=== PATIENT | male | born 1950 | race Caucasian/White ===

== ENCOUNTER 2016-07-25 14:49 | Emergency (ER) | payer BC ==
[2016-07-25 17:22] LABS: Hematocrit 40 % (42-52); Hemoglobin 13.4 g/dl (14.0-18.0); Mean Corpuscular HGB Conc 34 g/dl (31-36); Mean Corpuscular Hemoglobin 32 pg (27-31); Mean Corpuscular Volume 93 fL (80-94); Mean Platelet Volume 8 um3 (7.4-10.4); Red Blood Count 4.26 10^6/ul (4.0-5.4); Red Cell Distribution Width 13 % (10.5-15); White Blood Count 5.9 10^3/ul (3.5-10.8)
[2016-07-25 17:35] LABS: Albumin 4.2 g/dL (3.2-5.2); BUN/Creatinine Ratio 22.8 (8-20); Calcium 9.4 mg/dL (8.6-10.3); EGFR African American 106.9 (>60); EGFR Non-African American 83.1 (>60); Globulin 2.6 g/dL (2-4); Potassium 4.1 mmol/L (3.5-5.0); Total Bilirubin 0.5 mg/dL (0.2-1.0); Total Protein 6.8 g/dL (6.4-8.9)
[2016-07-25 17:36] LABS: Troponin I 0.01 ng/mL (<0.04)
[2016-07-25 18:43] VITALS: BP 113/76
--- NOTE | 2016-07-28 09:33 | ED ---
Billie Winston Matthew, scribed for Daniel Quan MD on 07/25/16 at 1719 . Back Pain - HPI Summary HPI Summary: A 65 y/o male presents to the ED with upper back pain since two weeks ago. The pain is rated 7/10 in severity. Associated symptoms include left shoulder and arm aches. The patient denies trauma weakness, numbness, tingling, abdominal pain and current chest pain. However, he states that he had mild chest pressure last night, which alleviated by morning. The patient has been stretching and received a massage without much relieve. He has also been taking ibuprofen, muscle spam medication, and injections without relief either. He states that his symptoms mild improved yesterday, but worsened today. 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 His symptoms are unaffected by PO intake. The pain worsens with flexion of the neck and coughing. He was seen at [facility] today, and they recommended he presents to the ED for blood work. At [facility], he received an EKG and XRAYs, which he states all returned normal. - History of Current Complaint Chief Complaint: EDGeneral Stated Complaint: UPPER LT BACK PAIN Time Seen by Provider: 07/25/16 15:57 Hx Obtained From: Patient Onset/Duration: Gradual Onset, Lasting Weeks, Still Present Onset/Duration: Started Weeks Ago, Atraumatic, Still Present Timing: Constant Back Pain Location: Is Discrete @ - upper back Severity Initially: Moderate Severity Currently: Moderate Pain Intensity: 7 Pain Scale Used: 0-10 Numeric Aggravating Symptom(s): Movement - flexion of the neck, Cough Alleviating Symptom(s): Nothing Associated Signs And Symptoms: Positive: Other - left shoulder and arm aches. Negative: Weakness, Numbness, Tingling, Abdominal Pain - Allergies/Home Medications Allergies/Adverse Reactions: Allergies Allergy/AdvReac Type Severity Reaction Status Date / Time Pollens, Dust, Mold AdvReac Intermediate Nasal Uncoded 04/01/16 14:09 Congestion PMH/Surg Hx/FS Hx/Imm Hx Endocrine/Hematology History: Denies: Hx Diabetes Cardiovascular History: Denies: Hx Congestive Heart Failure, Hx Hypertension Respiratory History: Reports: Hx Asthma, Hx Seasonal Allergies, Hx Sleep Apnea, Other Respiratory Problems/Disorders - PRIOR INFILTRATES History: Denies: Hx Renal Disease Musculoskeletal History: Reports: Hx Arthritis - 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 Sensory History: Reports: Hx Contacts or Glasses Opthamlomology History: Reports: Hx Contacts or Glasses - Surgical History Surgery Procedure, Year, and Place: Arthroscopic left knee; Fractured right arm repaired; Nasal Polyps removed - Immunization History Date of Tetanus Vaccine: today in ED Infectious Disease History: No Infectious Disease History: Denies: Traveled Outside the [place] in Last 30 Days - Family History Family History: FHx of pacemaker - Social History Alcohol Use: None Substance Use Type: Reports: None Smoking Status (MU): Never Smoked Tobacco Review of Systems Constitutional: Negative Eyes: Negative ENT: Negative Cardiovascular: Negative Negative: Chest Pain Respiratory: Negative Negative: Shortness Of Breath Gastrointestinal: Negative Negative: Abdominal Pain Genitourinary: Negative Positive: Myalgia - back pain; left shoulder achiness, left arm achiness Skin: Negative Neurological: Negative Negative: Weakness, Numbness Psychological: Normal All Other Systems Reviewed And Are Negative: Yes Physical Exam - Summary Physical Exam Summary: GENERAL: Awake, alert, oriented, no acute distress, very pleasant, normal phonation HEENT: Head is normocephalic, atraumatic, pupils equal round reactive to light, no photophobia, extraocular muscles intact, no facial droop, anicteric sclera, pink conjunctiva, mucous membranes moist, no erythema, no discharge, no lesions , neck is soft, neck is supple, no carotid bruit , trachea is midline, no JVD CARDIAC: Regular rate and rhythm, S1, S2, no rub, no murmur, no gallop, 2+ radial and pedal pulses bilaterally RESPIRATORY: Clear to auscultation bilaterally with no rales, rhonchi, or wheezes, non-tender ABDOMEN: Bowel sounds positive, no bruit, soft non-tender, no CVA tenderness, Negative Catrwright's Sign EXTREMITIES: No edema, warm, dry, moving all extremities in a grossly normal manner NEUROLOGICAL: Cranial nerves II through XII intact, five out of five flexor and extensor strength in upper and lower extremities symmetrically, 2+ DTRs in upper and lower extremities symmetrically, no pronator drift, normal finger nose finger, normal rapid alternating movements, negative Babinski, normal sensation in all extremities Triage Information Reviewed: Yes Vital Signs On Initial Exam: Initial Vitals Temp Pulse Resp BP Pulse Ox 98.1 F 72 16 133/86 100 07/25/16 15:07 07/25/16 15:07 07/25/16 15:07 07/25/16 15:07 07/25/16 15:07 Vital Signs Reviewed: Yes Diagnostics - Vital Signs Vital Signs Temp Pulse Resp BP Pulse Ox 07/25/16 15:07 98.1 F 72 16 133/86 100 - Laboratory Lab Results: Lab Results 07/25/16 07/25/16 07/25/16 Range/Units 16:11 16:11 16:11 WBC 5.9 (3.5-10.8) 10^3/ul RBC 4.26 (4.0-5.4) 10^6/ul Hgb 13.4 L (14.0-18.0) g/dl Hct 40 L (42-52) % MCV 93 (80-94) fL MCH 32 H (27-31) pg MCHC 34 (31-36) g/dl RDW 13 (10.5-15) % Plt Count 254 (150-450) 10^3/ul MPV 8 (7.4-10.4) um3 Neut % (Auto) 60.8 (38-83) % Lymph % (Auto) 26.8 (25-47) % [place] % (Auto) 8.5 (1-9) % Eos % (Auto) 3.3 (0-6) % Baso % (Auto) 0.6 (0-2) % Absolute Neuts (auto) 3.6 (1.5-7.7) 10^3/ul Absolute Lymphs (auto) 1.6 (1.0-4.8) 10^3/ul Absolute Monos (auto) 0.5 (0-0.8) 10^3/ul Absolute Eos (auto) 0.2 (0-0.6) 10^3/ul Absolute Basos (auto) 0 (0-0.2) 10^3/ul Absolute Nucleated RBC 0 10^3/ul Nucleated RBC % 0 INR (Anticoag Therapy) 0.96 (0.89-1.11) APTT 33.0 (26.0-36.3) seconds Sodium 136 (133-145) mmol/L Potassium 4.1 (3.5-5.0) mmol/L Chloride 103 (101-111) mmol/L Carbon Dioxide 28 (22-32) mmol/L Anion Gap 5 (2-11) mmol/L BUN 21 (6-24) mg/dL Creatinine 0.92 (0.67-1.17) mg/dL Est GFR ( Amer) 106.9 (>60) Est GFR (Non-Af Amer) 83.1 (>60) BUN/Creatinine Ratio 22.8 H (8-20) Glucose 89 (70-100) mg/dL Lactic Acid (0.5-2.0) mmol/L Calcium 9.4 (8.6-10.3) mg/dL Total Bilirubin 0.50 (0.2-1.0) mg/dL AST 17 (13-39) U/L ALT 13 (7-52) U/L Alkaline Phosphatase 38 (34-104) U/L Total Creatine Kinase 113 (10-223) U/L CK-MB (CK-2) 3.0 (0.6-6.3) ng/mL Myoglobin 27.5 (17.4-105.7) ng/mL Troponin I 0.01 (<0.04) ng/mL B-Natriuretic Peptide ( - 100) pg/mL Total Protein 6.8 (6.4-8.9) g/dL Albumin 4.2 (3.2-5.2) g/dL Globulin 2.6 (2-4) g/dL Albumin/Globulin Ratio 1.6 (1-3) 07/25/16 07/25/16 Range/Units 16:11 16:11 WBC (3.5-10.8) 10^3/ul RBC (4.0-5.4) 10^6/ul Hgb (14.0-18.0) g/dl Hct (42-52) % MCV (80-94) fL MCH (27-31) pg MCHC (31-36) g/dl RDW (10.5-15) % Plt Count (150-450) 10^3/ul MPV (7.4-10.4) um3 Neut % (Auto) (38-83) % Lymph % (Auto) (25-47) % [place] % (Auto) (1-9) % Eos % (Auto) (0-6) % Baso % (Auto) (0-2) % Absolute Neuts (auto) (1.5-7.7) 10^3/ul Absolute Lymphs (auto) (1.0-4.8) 10^3/ul Absolute Monos (auto) (0-0.8) 10^3/ul Absolute Eos (auto) (0-0.6) 10^3/ul Absolute Basos (auto) (0-0.2) 10^3/ul Absolute Nucleated RBC 10^3/ul Nucleated RBC % INR (Anticoag Therapy) (0.89-1.11) APTT (26.0-36.3) seconds Sodium (133-145) mmol/L Potassium (3.5-5.0) mmol/L Chloride (101-111) mmol/L Carbon Dioxide (22-32) mmol/L Anion Gap (2-11) mmol/L BUN (6-24) mg/dL Creatinine (0.67-1.17) mg/dL Est GFR ( Amer) (>60) Est GFR (Non-Af Amer) (>60) BUN/Creatinine Ratio (8-20) Glucose (70-100) mg/dL Lactic Acid 0.7 (0.5-2.0) mmol/L Calcium (8.6-10.3) mg/dL Total Bilirubin (0.2-1.0) mg/dL AST (13-39) U/L ALT (7-52) U/L Alkaline Phosphatase (34-104) U/L Total Creatine Kinase (10-223) U/L CK-MB (CK-2) (0.6-6.3) ng/mL Myoglobin (17.4-105.7) ng/mL Troponin I (<0.04) ng/mL B-Natriuretic Peptide 84 ( - 100) pg/mL Total Protein (6.4-8.9) g/dL Albumin (3.2-5.2) g/dL Globulin (2-4) g/dL Albumin/Globulin Ratio (1-3) Result Diagrams: 07/25/16 16:11 07/25/16 16:11 Lab Statement: Any lab studies that have been ordered have been reviewed, and results considered in the medical decision making process. - EKG 15:17 Cardiac Rate: NL - 69 bpm EKG Rhythm: Sinus Rhythm EKG Interpretation: No Acute Ischemia Back Pain Course/Dx - Diagnoses Provider Diagnoses: back pain Discharge - Discharge Plan Condition: Stable Disposition: HOME Patient Education Materials: Back Pain (ED) Referrals: Kiara Yee MD [Primary Care Provider] - 2 Days Additional Instructions: Please follow-up with your primary care physician in two days. PLEASE RETURN TO THE EMERGENCY DEPARTMENT FOR NAUSEA, VOMITING, FEVER, PHOTOPHOBIA, CHEST PAIN, OR IF SYMPTOMS WORSEN. The documentation as recorded by the Billie dowling Matthew accurately reflects the service I personally performed and the decisions made by Kadeem martell Steven, MD.
== END 2016-07-25 18:41 | disposition home or self-care (01) ==
LOC: ED 14:49
DX: M54.9 Dorsalgia, unspecified (principal)
CPT/HCPCS: 36415; 80053; 82550; 82553; 83605; 83874; 83880; 84484; 85025; 85610; 85730; 93005; 99282

== ENCOUNTER 2017-07-11 10:26 | Emergency (ER) | payer BC ==
--- OUTSIDE RECORDS SUMMARY | 2017-07-11 10:30 | XMS REPORT ---
:1950 External Reference #:[id number] Author Organization [facility] Address [address] [place] [address] Phone [phone] Care Team Providers Name Role Phone O Anjana Krystleyane Primary Care Physician Unavailable Payers Type Date Identification Numbers Payment Provider Subscriber Commercial Effective: Policy Number: [id number] BS [place] Jeryr Aj 2011 Group Name: Chanel Bernal [id number] PayID: [id number] [place] [address] Problems Date Description Provider Status Onset: Kidney stone Active Onset: 07/04/2017 Age related macular degeneration Tiarra Linton O.D. Active Onset: 07/01/2016 Open-angle glaucoma - borderline Tiarra Linton O.D. Active Onset: 04/06/2015 Open angle with borderline findings Tiarra Linton O.D. Active Onset: 04/06/2015 Presbyopia Tiarra Linton O.D. Active Onset: 04/06/2015 Hypermetropia Tiarra Linton O.D. Active Onset: 04/06/2015 Scarred macula Tiarra Linton O.D. Active Family History Date Family Member(s) Problem(s) Comments General No Current Problems Father Cataract Mother No Current Problems Social History Type Date Description Comments Marital Status Legal Status: Occupation [employer] Work Status Part-Time Employment ETOH Use Occasionally consumes alcohol Smoking Patient has never smoked Recreational Drug Use Denies Drug Use Daily Caffeine Consumes on average 2 cups of regular coffee per day Allergies, Adverse Reactions, Alerts Date Description Reaction Status Severity Comments 04/05/2015 NKDA active Medications Medication Date Status Form Strength Qnty SIG Indications Ordering Provider Vitamin C Active Capsules 500mg 2 tab by Unknown 00 mouth every day Vitamin D3 Active Capsules 2000Unit Unknown 00 No Active 07/01/20 Hx Unknown Medications 16 - 07/01/20 16 Vitamin B6 Hx Tablets 200mg Unknown - 07/03/20 17 Zinc Hx Capsules 30mg Unknown - 07/03/20 17 Medications Administered in Office Medication Date Status Form Strength Qnty SIG Indications Ordering Provider Crizal Administered Injection Karen 3 Brown,Abo Results Description No Information Procedures Date CPT Code Description Status 07/01/2016 32606 Scanning Computerized Ophthalmic Diagnostic Imag Completed Posterior Seg On 07/01/2016 31295 Visual Field Exam Extended Completed 07/01/2016 37872 Est Patient Intermediate Exam Completed 01/03/2016 15858 Pachymetry Completed 07/05/2015 70792 Visual Field Exam Extended Completed 07/05/2015 57622 Est Patient Intermediate Exam Completed 04/06/2015 62001 Scanning Computerized Opthalmic Diagnostic Posterior Completed Seg Retina 04/06/2015 98517 Est Patient Comprehensive Exam Completed 04/05/2014 77805 Scanning Computerized Opthalmic Diagnostic Posterior Completed Seg Retina 04/05/2014 18010 Determination Of Refractive State Completed 04/05/2014 47502 Est Patient Comprehensive Exam Completed 03/25/2012 602 Nose Pads Completed 03/25/2012 609 Eyewear Repair Completed 03/24/2012 00373 Determination Of Refractive State Completed 03/24/2012 11643 Est Patient Comprehensive Exam Completed 02/06/2010 44064 Determination Of Refractive State Completed 02/06/2010 32874 Est Patient Comprehensive Exam Completed 02/04/2008 76281 Determination Of Refractive State Completed 02/04/2008 86208 Est Patient Comprehensive Exam Completed 11/27/2005 21434 Determination Of Refractive State Completed 11/27/2005 39886 Est Patient Comprehensive Exam Completed 04/18/2004 39978 Determination Of Refractive State Completed 04/18/2004 75038 Est Patient Comprehensive Exam Completed 02/23/2003 113 Crizal Completed Encounters Type Date Location Provider CPT E/M Dx Office Visit 01/03/2016 Brandin Stokes MD, Tiarra Linton O.D. 92104 H40.013 8:30a Plan of Care 07/04/2017 - Tiarra Linton O.D.H40.013 Open angle with borderline findings, low risk, bilateralComments:Dr. Linton is considering you a Glaucoma suspect. This means the eye pressure in your eyes are higher than average, your optic nerve appearance is suspicious, or you have strong risk factors; but you have not been diagnosed with Glaucoma. Follow up appointments are very important to keep.Follow up:1 year OCT nerve/VF 24-2H35.30 Unspecified macular degenerationComments:Smoking can increase the risk of developing or worsening any eye related disease, as well as affect your overall health. If you are a smoker, we strongly recommend that you quit.If you are not a smoker, we strongly recommend that you do not start.
[2017-07-11 10:42] VITALS: BP 127/77
--- NOTE | 2017-07-11 12:04 | UC ---
Respiratory Complaint HPI - HPI Summary HPI Summary: Pt presents with ST, earache, and sinus congestion for 2 days. He tells me that he was walking [place] dog along the [place] few days ago and woke up with a ST and sinus congestion 2 days ago. He took vitamin C and drank tea. Denies fever, chills, SOB, chest pain, abdominal pain, N/v/D/C - History of Current Complaint Chief Complaint: UCRespiratory Stated Complaint: SORE THROAT Time Seen by Provider: 07/11/17 11:47 Hx Obtained From: Patient Onset/Duration: Gradual Onset Severity Initially: Mild Severity Currently: Mild Pain Intensity: 3 Pain Scale Used: 0-10 Numeric Character: Cough: Nonproductive - Allergies/Home Medications Allergies/Adverse Reactions: Allergies Allergy/AdvReac Type Severity Reaction Status Date / Time Pollens, Dust, Mold AdvReac Intermediate Nasal Uncoded 04/01/16 14:09 Congestion Home Medications: Home Medications Ascorbic Acid TAB* [Vitamin C TAB*] 2,000 mg PO DAILY 07/11/17 [History Confirmed 07/11/17] PMH/Surg Hx/FS Hx/Imm Hx Previously Healthy: Yes - Surgical History Surgical History: Yes Surgery Procedure, Year, and Place: Arthroscopic left knee; Fractured right arm repaired; Nasal Polyps removed 90's - Family History Family History: FHx of pacemaker - Social History Occupation: Employed Part-time Lives: With Family Alcohol Use: Weekly Substance Use Type: Marijuana Substance Use Comment - Amount & Last Used: several times each week Smoking Status (MU): Never Smoked Tobacco Review of Systems Constitutional: Negative Skin: Negative Eyes: Negative ENT: Sore Throat, Ear Ache, Nasal Discharge, Sinus Congestion Respiratory: Cough Cardiovascular: Negative Gastrointestinal: Negative All Other Systems Reviewed And Are Negative: Yes Physical Exam Triage Information Reviewed: Yes Appearance: Well-Appearing, Well-Nourished Vital Signs: Initial Vital Signs Temp 98.3 F 07/11/17 10:36 Pulse 67 07/11/17 10:36 Resp 16 07/11/17 10:36 BP 127/77 07/11/17 10:36 Pulse Ox 100 07/11/17 10:36 Vital Signs Reviewed: Yes Eyes: Positive: Conjunctiva Clear. Negative: Conjunctiva Inflamed, Discharge ENT: Positive: Hearing grossly normal, Pharynx normal, Nasal congestion, TMs normal, Uvula midline. Negative: Pharyngeal erythema, Nasal drainage, TM bulging, TM dull, TM red, Tonsillar swelling, Tonsillar exudate, Hoarse voice, Sinus tenderness Neck: Positive: Supple, Nontender, No Lymphadenopathy Respiratory: Positive: Chest non-tender, Lungs clear, Normal breath sounds, No respiratory distress, No accessory muscle use Cardiovascular: Positive: RRR, No Murmur, Pulses Normal Neurological: Positive: Alert Psychological: Positive: Age Appropriate Behavior Skin: Negative: rashes UC Diagnostic Evaluation - Laboratory O2 Sat by Pulse Oximetry: 100 Respiratory Course/Dx - Course Course Of Treatment: POC strep neg. Suspect viral illness. Advised patient to try conservative measures such as tylenol and mucinex OTC. Netti pot and rest. If symptoms worsen or persist to f/u with his PCP or return to clinic. - Differential Dx/Diagnosis Differential Diagnosis/HQI/PQRI: Bronchitis, Influenza, Laryngitis, Sinusitis Provider Diagnoses: Viral pharyngitis. Viral sinusitis Discharge - Discharge Plan Condition: Stable Disposition: HOME Patient Education Materials: Pharyngitis (ED) Referrals: Kiara Yee MD [Primary Care Provider] - Additional Instructions: If you develop a fever, SOB, chest pain, new or worsening symptoms - please call your PCP or go to the ED. 1) May take plain Mucinex OTC twice a day for the sinus congestion. Tylenol OTC for any fevers or discomfort.
== END 2017-07-11 12:16 | disposition home or self-care (01) ==
LOC: UCEAST 10:26
DX: J02.8 Acute pharyngitis due to other specified organisms (principal); J32.9 Chronic sinusitis, unspecified; B97.89 Other viral agents as the cause of diseases classified elsewhere; Z91.048 Other nonmedicinal substance allergy status
CPT/HCPCS: 87651; 99211; G0463

== ENCOUNTER 2017-10-27 15:49 | Emergency (ER) | payer BC ==
[2017-10-27 16:03] VITALS: BP 124/76
[2017-10-27] MEDS ORDERED: HYDROcodone/ACETAMIN 5-325 MG* 1 TAB PO ONE (16:15)
[2017-10-27] MEDS ORDERED: Tetan/Diph/Pertus SYR(Tdap)* 0.5 ML SYR(BOOSTRIX) use SYR IM ONE (16:18)
--- NOTE | 2017-10-27 16:20 | UC ---
Laceration HPI - HPI Summary HPI Summary: This is an otherwise healthy 67 yo male who presents with c/o laceration of his L thumb due to a table saw. Injury occurred earlier today. He is unsure of his last tetanus. No other injuries sustained. - History Of Current Complaint Chief Complaint: UCLaceration Stated Complaint: thumb laceration Pain Intensity: 5 - Allergies/Home Medications Allergies/Adverse Reactions: Allergies Allergy/AdvReac Type Severity Reaction Status Date / Time Pollens, Dust, Mold AdvReac Intermediate Nasal Uncoded 04/01/16 14:09 Congestion PMH/Surg Hx/FS Hx/Imm Hx Previously Healthy: Yes - Surgical History Surgical History: Yes Surgery Procedure, Year, and Place: Arthroscopic left knee; Fractured right arm repaired; Nasal Polyps removed 's - Family History Family History: FHx of pacemaker - Social History Alcohol Use: Weekly Substance Use Type: Marijuana Substance Use Comment - Amount & Last Used: several times each week Smoking Status (MU): Never Smoked Tobacco Review of Systems Constitutional: Negative Skin: Other - laceration Eyes: Negative ENT: Negative Respiratory: Negative Cardiovascular: Negative Gastrointestinal: Negative Genitourinary: Negative Motor: Negative Neurovascular: Negative Musculoskeletal: Negative Neurological: Negative Psychological: Negative Is Patient Immunocompromised?: No All Other Systems Reviewed And Are Negative: Yes Physical Exam Triage Information Reviewed: Yes Appearance: Well-Appearing Vital Signs: Initial Vital Signs Temp 97.9 F 10/27/17 15:57 Pulse 72 10/27/17 15:57 Resp 18 10/27/17 15:57 BP 124/76 10/27/17 15:57 Pulse Ox 96 10/27/17 15:57 ENT Exam: Normal Neck exam: Normal Respiratory Exam: Normal Cardiovascular Exam: Normal Cardiovascular: Positive: RRR Abdominal Exam: Normal Musculoskeletal Exam: Normal Musculoskeletal: Positive: Other: - ROM and strength intact Neurological Exam: Normal Neurological: Positive: Other: - sensation intact Psychological Exam: Normal Skin: Positive: Other - laceration of the distal pad of the L thumb, irregular laceration ~3cm in length Laceration Repair - Laceration Repair 1 Description: Irregular Laceration Size After Repair: Length (cm) - 3 Modified For Repair: No Anesthesia Used: 2.0% Lido Cleansing Completed Via Routine Prep: Yes Irrigation With Pressure Irrigation Device: No Closure Material: Sutures Closure Method: Single Layer - 2 simple sutures on either end, and 2 horizontal mattress sutures in the middle Suture Of: Skin Suture Type: Nylon Diagnostics - Laboratory Diagnostic Studies Completed/Ordered: XR L thumb - no associated fx Laceration Course/Dx - Course/Dx Course Of Treatment: Otherwise healthy 67 yo male with laceration of L thumb from a table saw. No associated fracture. Simple closure. Tetanus updated - Differential Dx - Laceration/Wound Differental Diagnoses: Laceration, Tendon Laceration Provider Diagnoses: 1. Laceration L 1st finger Discharge - Sign-Out/Discharge Documenting (check all that apply): Discharge - Discharge Plan Condition: Stable Disposition: HOME Prescriptions: Hydrocodone/Acetaminophen [Hydrocodone-Acetamin 5-325 mg] 1 each PO Q6H PRN #5 tablet MDD 4 tabs PRN Reason: Pain Patient Education Materials: Care For Your Stitches (DC), Laceration (DC) Referrals: Kiara Yee MD [Primary Care Provider] - 7 Days Additional Instructions: Instructions: 1. Keep laceration clean and dry 2. Replace bandage daily - apply antibiotic ointment and clean gauze 3. Monitor for signs of infection 4. Return here or your primary care provider's office in 7-10days for suture removal - Billing Disposition and Condition Condition: STABLE Disposition: HOME
[2017-10-27] MEDS ORDERED: Lidocaine 2% PF * 5 ML VIAL INJ ONE (16:35)
--- NOTE | 2017-10-27 16:35 | RAD ---
INDICATION: Left distal thumb saw injury. TECHNIQUE: 3 views of the left thumb were obtained. FINDINGS: There is soft tissue swelling and a soft tissue defect adjacent to the distal phalanx. The bones are in normal alignment. No fracture is seen. There is mild to moderate osteoarthritic change in the metacarpal phalangeal and interphalangeal joints. IMPRESSION: SOFT TISSUE DEFECT, NO FRACTURE IS SEEN.
== END 2017-10-27 17:46 | disposition home or self-care (01) ==
LOC: UCEAST 15:49
DX: S61.012A Laceration without foreign body of left thumb without damage to nail, initial encounter (principal); W29.8XXA Contact with other powered hand tools and household machinery, initial encounter; Y92.9 Unspecified place or not applicable
CPT/HCPCS: 12002; 90715; 99212; G0463

== ENCOUNTER 2017-11-04 10:23 | Emergency (ER) | payer BC ==
[2017-11-04 11:08] VITALS: BP 128/83
--- NOTE | 2017-11-04 11:42 | UC ---
Laceration HPI - HPI Summary HPI Summary: Pt presents for removal of sutures to left thumb. He had them placed on 10/27. Due to the location and type of laceration, the wound was unable to be fully approximated and left open with a width of about 5mm. He has had no issues since suture placement. - History Of Current Complaint Chief Complaint: UCLaceration Stated Complaint: STITCH REMOVAL Time Seen by Provider: 11/04/17 11:10 Hx Obtained From: Patient Laceration Location: Finger Mechanism Of Injury: Sharp Trauma Severity: Mild Pain Intensity: 1 Pain Scale Used: 0-10 Numeric - Allergies/Home Medications Allergies/Adverse Reactions: Allergies Allergy/AdvReac Type Severity Reaction Status Date / Time cat dander Allergy Congestion Verified 11/04/17 11:04 Pollens, Dust, Mold AdvReac Intermediate Nasal Uncoded 11/04/17 11:03 Congestion Home Medications: Home Medications NK [No Home Medications Reported] 11/04/17 [History Confirmed 11/04/17] PMH/Surg Hx/FS Hx/Imm Hx - Additional Past Medical History Additional PMH: None - Surgical History Surgical History: Yes Surgery Procedure, Year, and Place: Arthroscopic left knee; Fractured right arm repaired; Nasal Polyps removed 's - Family History Family History: FHx of pacemaker - Social History Occupation: Employed Full-time Lives: With Family Alcohol Use: Weekly Substance Use Type: Marijuana Substance Use Comment - Amount & Last Used: several times each week Smoking Status (MU): Never Smoked Tobacco Review of Systems Constitutional: Negative Skin: Other - [address] left thumb Respiratory: Negative Cardiovascular: Negative Neurovascular: Negative Musculoskeletal: Negative Neurological: Negative Psychological: Negative All Other Systems Reviewed And Are Negative: Yes Physical Exam - Summary Physical Exam Summary: GENERAL: NAD. WDWN. No pain distress. SKIN: Laceration to left thumb with 5mm width of new granulation tissue due to secondary wound healing. [address] in place and [address] No erythema, drainage, warmth, edema, or streaking. NECK: Supple. Nontender. No lymphadenopathy. CHEST: No accessory muscle use. Breathing comfortably and in no distress. CV: Pulses intact. Brisk cap refill. MSK: FROM left thumb NEURO: Alert. Sensations intact left thumb PSYCH: Age appropriate behavior. Triage Information Reviewed: Yes Vital Signs: Initial Vital Signs Temp 98.1 F 11/04/17 11:04 Pulse 60 11/04/17 11:04 Resp 18 11/04/17 11:04 BP 128/83 11/04/17 11:04 Pulse Ox 99 11/04/17 11:04 Laceration Course/Dx - Course/Dx Course Of Treatment: Sutures removed without issue. Advised to keep area covered with band-aid or nonstick dressing until wound scabs or heals. - Differential Dx - Laceration/Wound Provider Diagnoses: Suture removal left thumb Discharge - Sign-Out/Discharge Documenting (check all that apply): Discharge/Admit/Transfer - Discharge Plan Condition: Stable Disposition: HOME Referrals: Kiara Yee MD [Primary Care Provider] - Additional Instructions: If you develop a fever, shortness of breath, chest pain, new or worsening symptoms - please call your PCP or go to the ED. - Billing Disposition and Condition Condition: STABLE Disposition: HOME
== END 2017-11-04 11:45 | disposition home or self-care (01) ==
LOC: UCEAST 10:23
DX: S61.012D Laceration without foreign body of left thumb without damage to nail, subsequent encounter (principal); X58.XXXD Exposure to other specified factors, subsequent encounter

== ENCOUNTER 2019-04-30 09:06 | Observation (INO) | payer MEDICARE ==
--- NOTE | 2019-04-30 09:24 | ED ---
HPI Cardiac - HPI Summary HPI Summary: 68 year old male reports to [facility] with irregular heart rhythm, starting months ago but worsening 4-5 days ago. He was at an annual sleep lab this morning when atrial flutter was detected. He notes no discomfort. His heart rhythm is more noticeable after lying down in bed. Patient reports no palpitations or shortness of breath. He has no history of irregular heart rhythm. PMHx of asthma many years ago, exercise induced. He has had recent biopsies on his prostate. He does not take any chronic medications. PSHx include surgeries for lacerations on his fingers and arthroscopic surgery on his left knee. No history of smoking tobacco. Drinks alcohol daily. FHx of diabetes. - History of Current Complaint Chief Complaint: EDDysrhythmPalp Stated Complaint: RAPID AFIB PER DR Colmenares Obtained From: Patient Onset/Duration: Started Weeks Ago, Still Present Initial Severity: Mild Current Severity: Mild Pain Intensity: 0 Pain Scale Used: 0-10 Numeric Character: Irregular Associated Signs and Symptoms: Negative: Shortness of Breath - Allergy/Home Medications Allergies/Adverse Reactions: Allergies Allergy/AdvReac Type Severity Reaction Status Date / Time cat dander Allergy Congestion Verified 04/30/19 09:42 Pollens, Dust, Mold AdvReac Intermediate Nasal Uncoded 11/04/17 11:03 Congestion Home Medications: Home Medications Ascorbic Acid TAB* [Vitamin C TAB*] 1,000 mg PO DAILY 04/30/19 [History Confirmed 04/30/19] Cyanocobalamin TAB* [Vitamin B12 TAB*] 500 mcg PO DAILY 04/30/19 [History Confirmed 04/30/19] PMH/Surg Hx/FS Hx/Imm Hx Endocrine/Hematology History: Denies: Hx Diabetes Cardiovascular History: Denies: Hx Congestive Heart Failure, Hx Hypertension Respiratory History: Reports: Hx Asthma, Hx Seasonal Allergies, Hx Sleep Apnea, Other Respiratory Problems/Disorders - PRIOR INFILTRATES History: Denies: Hx Renal Disease Musculoskeletal History: Reports: Hx Arthritis - 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 Sensory History: Reports: Hx Contacts or Glasses Opthamlomology History: Reports: Hx Contacts or Glasses - Surgical History Surgery Procedure, Year, and Place: Arthroscopic left knee; Fractured right arm repaired; Nasal Polyps removed s - Immunization History Date of Tetanus Vaccine: today in ED Infectious Disease History: No Infectious Disease History: Denies: Traveled Outside the [place] in Last 30 Days - Family History Known Family History: Positive: Diabetes Family History: FHx of pacemaker - Social History Alcohol Use: Daily Hx Substance Use: Yes Substance Use Type: Reports: Marijuana Substance Use Comment - Amount & Last Used: several times each week Smoking Status (MU): Never Smoked Tobacco Review of Systems Positive: Other - irregular rate and rhythm. Negative: Palpitations Negative: Shortness Of Breath All Other Systems Reviewed And Are Negative: Yes Physical Exam - Summary Physical Exam Summary: VITAL SIGNS: Reviewed. GENERAL: Patient is a well-developed and nourished male who is lying comfortable in the stretcher. Patient is not in any acute respiratory distress. HEAD AND FACE: No signs of trauma. No ecchymosis, hematomas or skull depressions. No sinus tenderness. EYES: PERRLA, EOMI x 2, No injected conjunctiva, no nystagmus. EARS: Hearing grossly intact. Ear canals and tympanic membranes are within normal limits. MOUTH: Oropharynx within normal limits. NECK: Supple, trachea is midline, no adenopathy, no JVD, no carotid bruit, no c- spine tenderness, neck with full ROM. CHEST: Symmetric, no tenderness at palpation. LUNGS: Clear to auscultation bilaterally. No wheezing or crackles. CVS: Irregular rate and rhythm, S1 and S2 present, no murmurs or gallops appreciated. ABDOMEN: Soft, non-tender. No signs of distention. No rebound, no guarding, and no masses palpated. Bowel sounds are normal. EXTREMITIES: FROM in all major joints, no edema, no cyanosis or clubbing. NEURO: Alert and oriented x 3. No acute neurological deficits. Speech is normal and follows commands. SKIN: Dry and warm. Triage Information Reviewed: Yes Vital Signs On Initial Exam: Initial Vitals Temp Pulse Resp BP Pulse Ox 97.2 F 71 14 124/76 100 04/30/19 09:12 04/30/19 09:12 04/30/19 09:12 04/30/19 09:12 04/30/19 09:12 Vital Signs Reviewed: Yes Procedures - Sedation Patient Received Moderate/Deep Sedation with Procedure: No Diagnostics - Vital Signs Vital Signs Temp Pulse Resp BP Pulse Ox 04/30/19 09:12 97.2 F 71 14 124/76 100 - Laboratory Result Diagrams: 04/30/19 09:29 04/30/19 09:29 Lab Statement: Any lab studies that have been ordered have been reviewed, and results considered in the medical decision making process. - Radiology CXR Radiology Interpretation Completed By: Radiologist Summary of Radiographic Findings: CXR shows no active cardiopulmonary disease. An ED physician has reviewed this report. - EKG 0905 Cardiac Rate: NL - 91 bpm EKG Rhythm: Atrial Flutter Summary of EKG Findings: EKG at 0905 shows atrial flutter at 91 bpm. No previous history of atrial flutter. An ED physician has interpreted and reviewed this report. Disposition - Course Assessment/Plan: This patient is a 68-year-old male who presents to the emergency department with a chief complaint of palpitations. EKG shows atrial flutter at 99 bpm. Blood tests without any significant abnormality except for slight normocytic normochromic anemia,playing urinalysis is negative for UTI. The troponin 0.01. TSH is 2.3. The patient has a new diagnosis of atrial flutter. Discussed the case with Dr. Lindsay and he recommends an echocardiogram. I discussed my physical exam and findings with Dr. Whipple from the hospitalist services who accepted the patient for admission. - Diagnoses Provider Diagnoses: Atrial flutter - Physician Notifications Discussed Care Of Patient With: Chuy Lindsay Time Discussed With Above Provider: 10:36 Instructed by Provider To: Admit As Inpatient - I spoke to Dr. Lindsay at 1036 about this patients case and he recommends admission. Admit/Transition Orders Completed By ED Provider: Yes Discharge ED - Sign-Out/Discharge Documenting (check all that apply): Patient Departure - Discharge Plan Condition: Stable Disposition: ADMITTED TO [facility] - Attestation Statements Document Initiated by Scribe: Yes Documenting Scribe: Carlin Fuentes Provider For Whom Twila is Documenting (Include Credential): Dr. Judah Duckworth MD. Scribe Attestation: Carlin Winston scribed for Dr. Judah Duckworth MD. on 04/30/19 at 1723. Status of Scribe Document: Ready
[2019-04-30 09:57] LABS: Troponin I 0.01 ng/mL (<0.04)
[2019-04-30 10:01] LABS: Albumin 4.3 g/dL (3.2-5.2); Albumin/Globulin Ratio 1.6 (1-3); BUN/Creatinine Ratio 22.5 (8-20); Calcium 9.4 mg/dL (8.6-10.3); EGFR African American 103.5 (>60); EGFR Non-African American 85.5 (>60); Globulin 2.7 g/dL (2-4); Magnesium 2.2 mg/dL (1.9-2.7); Potassium 4.1 mmol/L (3.5-5.0); Total Bilirubin 0.4 mg/dL (0.2-1.0)
[2019-04-30 10:30] LABS: ABS Basophils 0.1 10^3/ul (0-0.2); ABS Eosinophils 0.2 10^3/ul (0-0.6); ABS Lymphocytes 1.3 10^3/ul (1.0-4.8); ABS Monocytes 0.5 10^3/ul (0-0.8); ABS Neutrophils 2.9 10^3/ul (1.5-7.7); Eosinophil % 4.5 %; Hematocrit 38 % (42-52); Hemoglobin 13.3 g/dL (14.0-18.0); Lymphocyte % 26.5 %; Mean Corpuscular HGB Conc 35 g/dL (31-36); Mean Corpuscular Hemoglobin 32 pg (27-31); Mean Corpuscular Volume 92 fL (80-94); Nucleated Red Blood Cells % 0.1; Platelet Count 260 10^3/uL (150-450); Red Blood Count 4.17 10^6 /uL (4.18-5.48); Red Cell Distribution Width 13 % (10-15)
[2019-04-30 10:49] LABS: TSH (Thyroid Stimulating Horm) 2.3 mcIU/mL (0.34-5.60)
[2019-04-30] MEDS ORDERED: Acetaminophen TAB* 325 MG PO PRN (11:37)
[2019-04-30 12:21] LABS: Urine Appearance Clear; Urine Bilirubin Negative (Negative); Urine Blood Negative (Negative); Urine Color Yellow; Urine Glucose Negative (Negative); Urine Ketones Negative (Negative); Urine Nitrite Negative (Negative); Urine Protein Negative (Negative); Urine Specific Gravity 1.009 (1.010-1.030); Urine Urobilinogen Negative (Negative)
[2019-04-30] MEDS ORDERED: Metoprolol Tartrate TAB* 25 MG PO ONE (13:56)
--- NOTE | 2019-04-30 14:49 | ECHO ---
*[facility]* [place] [address] Fax #: [phone] Transthoracic Echocardiogram Patient: Benjamin Linder : 1950 Study Date: 04/30/2019 Age: 68 Gender: M HR: 106 bpm Height: 70 in /177.8 cm BSA: 2.01 m^2 Weight: 183.6 lb /83.5 kg BMI: 26.4 kg/m^2 *Change Management Administrator: * Coco Donaldson [facility] *Referring Physician: * Ange Ferreira *Reading Physician: * Chuy Lindsay MD Indications: Abnormal EKG. History: Functional status: Following treatment plan for sleep apnea. Conclusions Summary: - Left ventricle: There is mild concentric hypertrophy. Systolic function is mildly reduced. The estimated ejection fraction is 40-45%, closer to 45%.. Diffuse hypokinesis with minor regional variations. - Right ventricle: The cavity size is mildly dilated. Systolic function is low normal. - Right atrium: The atrium is mildly dilated. - Mitral valve: There is trace to mild regurgitation. - Tricuspid valve: There is trace to mild regurgitation. - Aortic root: The aortic root is mildly dilated. - Ascending aorta: The ascending aorta is mildly dilated. Study data: Transthoracic echocardiogram. Procedure: Transthoracic echocardiography was performed. Image quality was good. Complete 2D, spectral Doppler, and color flow Doppler. Location: Emergency department. Patient status: Inpatient. Patient room number: ED-15. No prior study is available for comparison. Rhythm: Atrial fibrillation. Findings Left ventricle: The cavity size is normal. There is mild concentric hypertrophy. Systolic function is mildly reduced. The estimated ejection fraction is 40-45%, closer to 45%.. Diffuse hypokinesis with minor regional variations. Left ventricular diastolic function parameters are indeterminate. Right ventricle: The cavity size is mildly dilated. Systolic function is low normal. Left atrium: The atrium is normal in size. Right atrium: The atrium is mildly dilated. Mitral valve: The leaflets are mildly thickened. There is no evidence of stenosis. There is trace to mild regurgitation. Aortic valve: The valve is trileaflet. The leaflets are mildly thickened. There is no evidence of stenosis. There is trace regurgitation. Tricuspid valve: The leaflets are normal thickness. There is no evidence of stenosis. There is trace to mild regurgitation. Pulmonic valve: The leaflets are normal thickness. There is no evidence of stenosis. There is trace regurgitation. Aorta: Aortic root: The aortic root is mildly dilated. Ascending aorta: The ascending aorta is mildly dilated. Aortic arch: The aortic arch is appears normal. Pericardium: There is no significant pericardial effusion. Pulmonary arteries: The main pulmonary artery is normal-sized. Systolic pressure can not be accurately estimated. Systemic veins: Inferior vena cava: The vessel is normal in size. There is (>= 50%) respiratory change in the IVC dimension. Measurements Left ventricle Value Ref Right atrium continued Value Ref ANITA, LAX 4.8 cm 4.2 - 5.8 SI dim, ES, A4C 4.9 cm 3.4 - 5.3 ESD, LAX 3.2 cm 2.5 - 4.0 Estimated RAP 3 mm Hg --------- FS, LAX 33 % 25 - 43 PW, ED, LAX (H) 1.1 cm 0.6 - 1.0 Aortic valve Value Ref FS 33 % 25 - 43 Bill diam, ED 2.3 cm --------- PW, ED (H) 1.1 cm 0.6 - 1.0 Peak v, S 0.87 m/sec --------- E', lat bill, TDI 13.2 cm/sec >=10.0 VTI, S 17.0 cm -- ------- E/e', lat bill, 4 Mean grad, S 2.0 mm Hg ----- ---- TDI Peak grad, S 3.0 mm Hg --------- E', med bill, TDI 11.5 cm/sec >=7.0 LVOT/AV, VTI ratio 0.71 -- ------- E/e', med bill, 5 TDI Mitral valve Value Ref E', avg, TDI 12.4 cm/sec Peak E 0.59 m/sec ----- ---- E/e', avg, TDI 5 <=14 Peak A 0 m/sec -- ------- Decel time 212 ms --------- LVOT Value Ref Peak pam, S 0.72 m/sec Pulmonic valve Value Ref VTI, S 12.0 cm Peak v, S 0.66 m/sec --------- Mean grad, S 1 mm Hg Peak grad, S 2.0 mm Hg --------- Ventricular septum Value Ref Aortic root Value Ref IVS, ED (H) 1.2 cm 0.6 - 1.0 Root diam 3.9 cm <4.1 Right ventricle Value Ref Ascending aorta Value Ref ANITA, LAX 3.5 cm AAo AP diam, S 3.7 cm --------- ANITA minor ax, (H) 4.8 cm 1.9 - 3.5 A4C mid Aortic arch Value Ref Arch diam 2.3 cm --------- Left atrium Value Ref AP dim, ES 3.20 cm 3.00 - Decending aorta Value Ref 4.00 Frankie peak pam 0.52 m/sec --------- ML dim, A4C 3.9 cm SI dim, A4C 4.9 cm Inferior vena cava Value Ref Vol/bsa, ES, 1-p 25 ml/m^2 12 - 37 Diam 2.1 cm --------- A4C Vol/bsa, ES, A/L 27 ml/m^2 16 - 34 Right atrium Value Ref SI dim, ES 4.9 cm 3.4 - 5.3 ML dim, ES, A4C (H) 4.7 cm 2.6 - 4.4 Legend: (L) and (H) ebony values outside specified reference range. Prepared and electronically signed by Chuy Lindsay MD 04/30/2019 14:49
--- NOTE | 2019-04-30 15:35 | HP ---
CC: Dr. Yee; Dr. Lindsay * HISTORY AND PHYSICAL: DATE OF ADMISSION: 04/30/19 PROVIDER: Ange Ferreira NP. PRIMARY CARE PROVIDER: Dr. Yee. ATTENDING PHYSICIAN WHILE IN THE HOSPITAL: Dr. Eva Costello * (dictated by Ange Ferreira NP). CHIEF COMPLAINT: Irregular heartbeat. HISTORY OF PRESENT ILLNESS: Mr. Linder is a 68-year-old male with a past medical history significant for obstructive sleep apnea, for which he wears a CPAP, who was at the sleep study clinic for yearly routine followup and was found to have irregular heart rate, so was sent to the emergency room for further evaluation. Upon arrival to the emergency room, the patient was found to be in atrial fibrillation on the monitor, and EKG was obtained which confirmed the atrial fibrillation. The patient denies any prior history of atrial fibrillation. He does report that he has had palpitations at night when he lies down at times for approximately the past month. The patient denies any dizziness, lightheadedness, diaphoresis, or chest pain. He does report that he has been able to go on bike rides and he has biked 11 miles without any difficulties. While in the emergency room, the patient was found to be in atrial fibrillation. During evaluation, the patient did convert to sinus rhythm momentarily where his heart rate dropped to 64. After a brief period of time, the patient did return to atrial fibrillation on the monitor. His heart rate has been anywhere from the 80s to the 140s during monitoring down in the emergency room. While in the emergency room, the patient had routine lab work drawn. His potassium was 4.1, his magnesium was 2.2. His TSH was within normal limits at 2.30. He has had no chest pain. He did have an EKG that showed atrial fibrillation. Due to his new onset atrial fibrillation and recommendations from Dr. Lindsay from Cardiology for admission, the patient will be admitted under observation. PAST MEDICAL HISTORY: Obstructive sleep apnea, wears a CPAP. PAST SURGICAL HISTORY: 1. Left knee arthroplasty. 2. Prostate biopsy and finger laceration repairs. HOME MEDICATIONS: Include: 1. Vitamin B12 500 mcg p.o. daily. 2. Vitamin C 1000 mg p.o. daily. 3. Vitamin A and D p.o. daily. ALLERGIES: No known drug allergies. He has environmental allergies. FAMILY HISTORY: Father with a history of pacemaker. Father with diabetes. Sister with colon cancer and father with skin cancer. SOCIAL HISTORY: The patient denies any tobacco use. He does report he drinks 1 beer daily. He does report he smoked marijuana approximately 6 weeks ago. Surrogate decision maker in the event he is unable to make his own decisions is his Pat. He is a full code. REVIEW OF SYSTEMS: He denies any fever or unintended weight loss. Denies any chest pain, edema, cough, hemoptysis, or shortness of breath. Denies any nausea , vomiting, diarrhea, abdominal pain, hematuria, or dysuria. Denies any focal weakness or sensory loss. Denies any visual complaints, dysphagia, arthralgias , or myalgias. He does complain of cracked dry heel skin on the right heel. Denies any lesions. Denies any psychosis or anxiety. PHYSICAL EXAMINATION GENERAL: At this time, Mr. Linder is alert and oriented, resting on the stretched in the emergency room. He is in no acute distress. He is a well- developed, well-nourished male. VITAL SIGNS: Blood pressure 121/84, heart rate is 96, respirations are 16, O2 saturation 96%, temperature is 98.3. HEENT: Head is atraumatic, normocephalic. Eyes: EOMs are intact. Sclerae anicteric and not pale. Oral mucosa is moist. NECK: Supple. LUNGS: Clear to auscultation bilaterally. No wheezes, rales, or rhonchi. CARDIAC: S1, S2. Irregular rate and rhythm. No murmurs, rubs, or gallops. ABDOMEN: Soft and nontender. Bowel sounds are present x4. EXTREMITIES: He is able to move all 4 extremities. There is no clubbing or cyanosis. Pedal pulses are +2 bilaterally. NEUROLOGIC: The patient is awake, alert, and oriented x3. Speech is clear. Thought process is intact. There are no gross focal deficits. SKIN: He does have some dried skin noted to his right heel without surrounding erythema or drainage. DIAGNOSTIC STUDIES/LAB DATA: WBCs are 5.0, RBCs 4.17, hemoglobin 13.3, hematocrit is 38, platelet count 260. APTT was 38.3. Sodium 140, potassium 4.1 , chloride 106, carbon dioxide is 28, anion gap 6, BUN 20, creatinine 0.89. Lactic acid was 1.1, glucose was 73. Calcium 9.4, magnesium 2.2. AST 18, ALTs 13, alkaline phosphatase 42. Total CK was 104. Troponin was 0.01, BNP was 54. TSH was 2.30. Urine was within normal limits with the exception specific gravity was 1.009. He had a chest x-ray, radiologist's impression: No active cardiopulmonary disease. He had an electrocardiogram that showed atrial fibrillation. ASSESSMENT AND PLAN: Mr. Linder is a 68-year-old male with past medical history significant for obstructive sleep apnea, who wears a CPAP, who was found to have irregular heartbeat while at a routine visit for his sleep apnea and was sent to the emergency room for further evaluation. He will be admitted under observation for: 1. New onset atrial fibrillation. The patient does have new onset atrial fibrillation. His CHADS-VASc score is 1 giving him a low moderate risk of stroke from atrial fibrillation. At this time, I will hold off on anticoagulation due to his low risk. I will order a transthoracic echocardiogram. The patient during my evaluation did convert to sinus rhythm momentarily at a rate 60 to 64. I have discussed his case with Dr. Lindsay as his heart rate does peak back up to into 140s, when in atrial fibrillation. We will give him 12.5 mg metoprolol tartrate x1 and continue to monitor his vital signs. He will be placed on telemetry on . The patient will be seen and evaluated by Dr. Lindsay from Cardiology. 2. Obstructive sleep apnea. The patient should wear his CPAP at night. 3. FEN: He can have a regular diet. 4. Code status: He is a full code. 5. DVT prophylaxis: I will place him on Lovenox subcu daily. TIME SPENT: Time spent on this admission was approximately 60 minutes, greater than half that time was spent at the bedside reviewing events leading thus far to his hospitalization, performing physical exam, and reviewing my plan of care. I have discussed this with my attending Dr. Eva Costello, and she is in agreement with my plan. ANGE FERREIRA, EMPLOYMENT LAW ATTORNEY [id number]/[facility] #: [id number] [place]
--- NOTE | 2019-04-30 18:38 | CONS ---
CC: Dr. Chuy Lindsay; Dr. Yee CARDIOLOGY CONSULTATION: DATE OF CONSULT: 04/30/19 CONSULTING PHYSICIAN: Ange Ferreira NP REASON FOR EVALUATION: Atrial fibrillation. HISTORY OF PRESENT ILLNESS: This is a very pleasant 68-year-old gentleman with a history of sleep apnea. He says that he presented for a routine annual visit at the [facility] and was noted to have an irregular heart rhythm. He was sent to the ER and found to be in atrial flutter with an elevated ventricular response with minimal exertion. He denies any changes in exercise capacity. 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 He goes up and down stairs without a problem. Denies shortness of breath or chest pain. No syncope or near syncope. No TIA symptoms. He does state that over the last 3 to 4 weeks, he has noticed that when he lies on his left side, he occasionally feels a fluttering sensation. He denies any hematemesis, hematochezia. He drinks a cup of coffee a day and 1 beer a day. He uses a CPAP at night. He reports that he exercises on a bike occasionally riding 11 miles at about 15 miles an hour mostly flat terrain without a problem, last did 3 weeks ago. PAST MEDICAL HISTORY: Includes sleep apnea, nephrolithiasis 2 years ago, elevated PSA and MRI guided biopsies, which according to the patient were negative. He denies hyperlipidemia, diabetes, hypertension or tobacco use. He was diagnosed with exertional asthma 10 years ago and was using an inhaler occasionally when jogging up hills, but has not used one in 6 to 8 years. PAST SURGICAL HISTORY: Includes arthroscopic surgery of the left knee. 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 He had nasal polyps removed. MEDICATIONS: Include: 1. Vitamin B12 500 mcg a day. 2. Vitamin C 1000 a day. ALLERGIES: He denies any drug allergies. He does have allergy to CAT DANDER and POLLEN. FAMILY HISTORY: He has 5 siblings, 1 brother has hypertension. His mother is alive at 99 and his father at 98. SOCIAL HISTORY: He drinks 2 cups of coffee a day and 1 beer a day. He is and has 2 adult children. ROS x10 negative except as above. PHYSICAL EXAM: He is a well-developed, well-nourished gentleman, in no apparent distress. No significant JVD. Atraumatic, normocephalic. Extraocular muscles are intact. Sclerae anicteric. Cardiac Exam: S1, S2 with no clear murmurs, gallops, or rubs. Chest was clear. No CVAT. Abdomen: Bowel sounds present, nontender. No hepatosplenomegaly. Femoral pulses are intact without bruits. Distal pulses intact. No edema. Motor strength is 5/5 bilaterally. Deep tendon reflexes 2/4. Alert and oriented x3. DIAGNOSTIC STUDIES/LAB DATA: His EKG from 04/30/19 at 9:05 a.m. revealed atrial flutter with a ventricular response in the 90s, somewhat variable. For baseline, no acute changes. His echocardiogram from 04/30/19 revealed an EF of 40% to 45% mildly reduced, mild concentric LVH, diffuse hypokinesis with minor regional variations. Atrium is mildly dilated. Trace to mild MR. Trace to mild TR. Mild dilatation of the aortic root. Borderline LVH on that echo. Chest x-ray by report revealed no active disease. Potassium of 4.1, BUN of 20, creatinine 0.89. Troponin of 0.01. Mild anemia with a hemoglobin of 13.3, hematocrit of 38, platelet count 260. IMPRESSION: My impression is that Mr. Linder has newly diagnosed atrial fibrillation and LV dysfunction possibly related to tachycardia-induced cardiomyopathy or some other etiology as he had undefined. I did discuss the nature of his diagnosis and prognosis and implications. I am concerned about poor rate control and a tachycardia induced cardiomyopathy. For the time being , I have recommended the followin. I suggested a trial of low-dose metoprolol to see if it control his aflutter and his rate. If that fails to correct his abnormalities, we could consider a trial of Betapace 80 mg b.i.d. 2. Once he is tolerating his beta-lashawn and rhythm treatment, we could consider having a low dose of ANDRIA inhibitor if his LV function fails to return to normal. I would suggest avoiding alcohol and caffeine, which may lower the threshold for atrial fibrillation. 3. Would try to supplement his potassium and maintain at above 4 as you are doing. 4. Would consider stress test to evaluate for ischemia. 5. If he continues to have difficult to control heart rates, tachybrady or with LV dysfunction, we consider a referral to EP person for consideration of ablation of his flutter. 6. I have estimated his CHADS-VASc 2 score of 1 with the LV dysfunction, if it does not resolve, it could be 2. For the time being, I have recommended aspirin , but he understands that we may have to reassess that and I recommend anticoagulation if his CHADS-VASc 2 scoring increases. I would also suggest optimization of his CPAP to decrease the likelihood of arrhythmias from hypoxemia. MEDICAL DECISION MAKING: Complex. Recommendations reviewed with Ange Ferreira NP [id number]/[facility] #: [id number] [place]
[2019-04-30] MEDS ORDERED: Enoxaparin(*) 40 MG/0.4 ML SYR SUBCUT SCH (21:00)
[2019-05-01 08:10] LABS: HDL Cholesterol 63.4 mg/dL
[2019-05-01] MEDS ORDERED: Metoprolol Tartrate TAB* 25 MG PO SCH (10:00)
[2019-05-01 12:06] VITALS: BP 112/73
--- NOTE | 2019-05-01 23:47 | DS ---
CC: Dr. Kiaar Yee; Dr. Chuy Lindsay.* DISCHARGE SUMMARY: DATE OF ADMISSION: 04/30/19 DATE OF DISCHARGE: 05/01/19 PRIMARY CARE PROVIDER: Dr. iKara Yee. MY ATTENDING WHILE IN THE HOSPITAL: Dr. Sarkis Voss.* (DICTATED BY MAGALYS RIBEIRO) CONSULTING TECHNOLOGY RECRUITER: Dr. Chuy Lindsay. PRIMARY DISCHARGE DIAGNOSES: 1. Paroxysmal atrial fibrillation with rapid ventricular response. 2. 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 3. Hyperlipidemia. SECONDARY DISCHARGE DIAGNOSIS: Obstructive sleep apnea, on CPAP. DISCHARGE MEDICATIONS: 1. Vitamin B12 500 mcg p.o. daily. 2. Vitamin C 1000 mg p.o. daily. 3. Tylenol 650 mg p.o. q.4 hours as needed. 4. Aspirin 81 mg p.o. daily. 5. Metoprolol succinate 25 mg p.o. daily. New medications at discharge: 1. Tylenol. 2. Aspirin. 3. Metoprolol. Medications discontinued at discharge: None. STUDIES DONE WHILE IN THE HOSPITAL: A chest x-ray from 04/30/19 read as no active cardiopulmonary disease. Transthoracic echocardiogram from 04/30/19 read as left ventricle mild concentric hypertrophy, systolic function mildly reduced, estimated ejection fraction 40% to 45%, diffuse hypokinesis with minor regional variations, right ventricular chamber size is mildly dilated, systolic function is low normal, right atrium is mildly dilated, mitral valve with [id number] regurgitation, tricuspid valve with trace- to-mild regurgitation, aortic root is mildly dilated , ascending aorta is mildly dilated. No prior study to compare. EKG showed normal sinus rhythm, no ST segment elevation or depression, normal axis, possible left atrial enlargement, QTc of 442, rate of 57. HOSPITAL COURSE: This is a brief summary of the patient's presentation. For more details, please see the history and physical from Ange Ferreira NP, on 04/30/19, as well as the consultation from Dr. Chuy Lindsay on 04/30/19. In brief, the patient is a 68-year-old male with past medical history significant for the above, who generally has very good functional status and was in his normal state of health when he went to a routine clinic visit at the pulmonology clinic and was found to have an irregular heart rhythm. The patient had an EKG, which confirmed atrial fibrillation and he was sent to the emergency department. The patient was given 1 dose of metoprolol tartrate and overnight converted from atrial fibrillation back to normal sinus rhythm. The patient had normal TSH, only slight macrocytic anemia, and an elevated LDL cholesterol. The patient had a transthoracic echocardiogram read as above, showing slightly decreased ejection fraction. The patient remained asymptomatic throughout his hospital stay. The patient had no elevated troponin. It was discussed at length with the patient what the options were with regards to stroke prevention and rhythm control, and the patient elected for low dose metoprolol and aspirin in stead of full dose anticoagulation given his CHADS2-VASc score of 2 with the caveats of his age being only 1 year above the cutoff and his ejection fraction being low, with no heart failure symptoms. The patient tolerated his metoprolol well. The patient had no bradycardia. The patient was stable. The patient's blood pressure stayed within normal range , the patient was stable and amenable for discharge on 05/01/19. PHYSICAL EXAM ON THE DAY OF DISCHARGE: General: The patient is a 68-year-old male, who appears stated age, sitting comfortably in bed, in no acute distress. Vital Signs: At the time of discharge, temperature 98.1, pulse rate 66, respiratory rate 16, oxygen saturation 96% on room air, blood pressure 112/72. HEENT: Head normocephalic, atraumatic. Sclerae anicteric. No conjunctival injection. Nasal mucosa moist. Oral mucosa moist. No pharyngeal erythema, discharge or exudate. Neck: Supple, nontender. No lymphadenopathy. No carotid bruits auscultated. No JVD. Cardiac: Regular rate and rhythm. No clicks, murmurs, gallops or rubs. Pulses are 2+ in the bilateral dorsalis pedis , posterior tibialis, and radial areas. Respiratory: Clear to auscultation bilaterally. No wheezes, rales or rhonchi. Good air exchange bilaterally. Abdomen: Soft, nontender, nondistended. Bowel sounds present and normoactive in all 4 quadrants. No hepatosplenomegaly. No abdominal bruits auscultated. No hepatojugular reflux. Genitourinary: No suprapubic or CVA tenderness. Skin : Clean, dry, and intact. No rash. Neuro: Cranial nerves II through XII intact. No focal deficits. Alert and oriented x3. Psychiatric: Pleasant and cooperative. DISCHARGE PLAN BY PROBLEM: 1. Paroxysmal atrial fibrillation with rapid ventricular response, likely tachycardia-induced cardiomyopathy: The patient will need close followup of this with his surgery aide, Dr. Chuy Lindsay. The patient should have an outpatient stress test to rule out ischemic cause for his heart failure and reduced ejection fraction. The patient will be started on metoprolol for rate and, hopefully, marginal rhythm control. The patient has been instructed to drink much less coffee and abstain entirely from alcohol if possible. The patient did drink up to 3 cups of coffee a day, with green tea as well as alcohol daily. The patient has no decreased functional status, but has been instructed to avoid strenuous activity at this time until he has negative stress test or his heart failure status is further clarified. The patient should follow up with Dr. Lindsay's office for long-term cardiac monitoring. 2. Hyperlipidemia: The patient's LDL cholesterol was 163. The patient's 10- year cardiology risk was calculated at 10.3%. It was instructed that the patient should try dietary and exercise modification after his stress test is normal. The patient should then follow up with Dr. Lindsay for repeat lipid profile and discussion of the pros and cons of statin therapy. The patient was opposed to starting therapy at this time. 3. Obstructive sleep apnea: The patient should continue with the CPAP machine. The patient should follow up with the pulmonology clinic to optimize his obstructive sleep apnea care given this may be a provoking factor for the atrial fibrillation. DISPOSITION: Home. CONDITION: Stable. TIME SPENT: Approximately 60 minutes were spent on the discharge of this patient, 30 of which was spent [id number] with the patient obtaining history and physical and discussing treatment plan. MAGALYS RIBEIRO [id number]/[facility] #: [id number] [place]
[2019-05-02] MEDS ORDERED: Aspirin EC TAB* 81 MG TAB.EC PO SCH (09:00)
== END 2019-05-01 14:15 | disposition home or self-care (01) ==
LOC: ED 09:06 → MEDTELE 11:37
PROVIDERS: ADMIT Internal Medicine; ATTEND Internal Medicine
DX: I48.0 Paroxysmal atrial fibrillation (principal); I48.92 Unspecified atrial flutter; J45.909 Unspecified asthma, uncomplicated; G47.30 Sleep apnea, unspecified; I42.9 Cardiomyopathy, unspecified; E78.5 Hyperlipidemia, unspecified; Z79.82 Long term (current) use of aspirin; Z79.899 Other long term (current) drug therapy
CPT/HCPCS: 36415; 71045; 80053; 80061; 81003; 82550; 83605; 83735; 83880; 84443; 84484; 85025; 85730; 93005; 93306; 94660; 96372; 99284; G0378; J1650